=== PATIENT | female | born 1955 | race African-American/Black ===

== ENCOUNTER 2016-06-05 14:41 | Inpatient (IN) ==
[2016-06-05] MEDS ORDERED: Ipratropium/Albuterol Neb 3 ML IH ONE (14:43)
[2016-06-05] MEDS ORDERED: methylPREDNISolone 125 MG/2 ML VIAL IVP ONE (14:43)
--- NOTE | 2016-06-05 14:56 | Emergency Department Note ---
Disposition Clinical Impression: Acute exacerbation of chronic obstructive airways disease Disposition: Admitted As Inpatient Condition: Fair Referrals: NO,PCP [Primary Care Provider] - Forms: ED Satisfaction Letter Time of Disposition: 15:52 SOB HPI - General Chief Complaint: ED Shortness of Breath/Dyspnea Stated Complaint: sob Time Seen by Provider: 06/05/16 14:43 Source: patient Limitations: no limitations Nursing Notes Reviewed: Yes Vital Signs Reviewed: Yes - History of Present Illness 60-year-old COPD or rales no [facility] comes in with increasing shortness breath last 3 days. With audible wheezing on arrival. Patient is on oxygen at the [facility]. Pt Subjective Complaint: shortness of breath, cough Onset (ago): day(s) Context: recent illness Severity: moderate Consistency/Duration: constant Improves with: nothing Worsens with: nothing Known history of: COPD - Related Data Previous Rx's Medication Instructions Recorded Azithromycin [Azithromycin 6-Tab 250 mg PO PER PKG DI #6 tab 03/22/16 Pack] Allergies Allergy/AdvReac Type Severity Reaction Status Date / Time No Known Allergies Allergy Verified 03/22/16 19:28 Constitutional: Denies: fever, chills, weakness, weight change Eyes: Denies: eye pain, eye discharge, vision change ENT ED: Denies: ear pain, throat pain, dental pain, hearing loss, epistaxis, congestion, dysphagia Cardiovascular: Denies: chest pain, palpitations, dyspnea on exertion, edema, syncope Respiratory: Reports: cough, dyspnea, wheezes. Denies: hemoptysis, stridor Gastrointestinal: Denies: abdominal pain, nausea, vomiting, diarrhea, constipation, hematemesis, melena, hematochezia Genitourinary: Denies: dysuria, frequency, hematuria, discharge Musculoskeletal: Denies: back pain, neck pain, arthralgia, myalgia Integumentary: Denies: rash, abrasion, lesions Neurological: Denies: headache, weakness, numbness, paresthesias, confusion, abnormal gait, vertigo Psychiatric: Denies: anxiety, depression, suicidal thoughts, homicidal thoughts , auditory hallucinations, visual hallucinations Endocrine: Denies: fatigue Hematological/Lymphatic: Denies: easy bleeding, easy bruising Allergic/Immunologic: Denies: facial swelling, urticaria Past Medical History - Past Medical History Medical history: Reports: asthma, COPD, GERD, hypertension, thyroid disease Psychiatric history: Reports: anxiety, depression - Social History Smoking Status: Former smoker Smokeless Tobacco Status: No Alcohol use: Reports: none Drug use: Reports: none Physical Exam - General Limitations: no limitations General appearance: alert - Head Head exam: atraumatic, normocephalic, normal inspection - Eye Eye exam: Present: normal appearance, PERRL, EOMI - ENT ENT exam: normal exam, normal oropharynx, mucous membranes moist - Neck Neck exam: Present: normal inspection, full ROM, trachea midline - Chest Chest inspection: Present: normal inspection, symmetric chest wall rise - Respiratory Respiratory exam: Present: respiratory distress, wheezes - Cardiovascular Cardiovascular exam: Present: regular rate, normal rhythm, normal heart sounds - Abdominal Exam Abdominal exam: Present: soft, Non-Tender. Absent: tenderness, distention, guarding, rebound, rigidity - Extremities Exam Extremities exam: Present: normal inspection, full ROM. Absent: tenderness, pedal edema - Expanded Lower Extremity Exam Neurovascular/Tendon exam: Absent: motor deficit, sensory deficit, tendon deficit Gait: observed and normal - Back Exam Back exam: Present: normal inspection, full ROM. Absent: tenderness - Neurological Exam Neurological exam: Present: alert, oriented X3 - Psychiatric Psychiatric exam: Present: normal affect, normal mood - Skin Skin exam: Present: warm, dry, intact, normal color Course - Reevaluation(s) Reevaluation #1: 60-year-old who comes in complaining of shortness of breath. Patient has a history of COPD he is on 3 L nasal cannula at the [facility]. Squad found the patient to have a pulse ox in the mid 80s. Time: 15:52 - Consultations Consultation #1: Discussed with , admit Time: 15:52 Vital Signs Temperature 98.2 F 06/05/16 14:43 Pulse Rate 92 06/05/16 14:43 Respiratory Rate 24 06/05/16 14:43 Blood Pressure 121/88 06/05/16 14:43 O2 Sat by Pulse Oximetry 100 06/05/16 14:43 Temperature 98.2 F 06/05/16 14:43 Pulse Rate 89 06/05/16 15:45 Respiratory Rate 18 06/05/16 15:45 Blood Pressure 116/77 06/05/16 15:45 O2 Sat by Pulse Oximetry 100 06/05/16 15:45 Oxygen Delivery Oxygen Delivery Nasal Cannula Shortness of Breath/Dyspnea - Lab Data Lab results reviewed: Yes I reviewed the patient's lab results. Result diagrams: 06/05/16 15:10 06/05/16 15:10 Lab Results 06/05/16 06/05/16 06/05/16 Range/Units 15:10 15:10 15:10 WBC 8.4 (4.3-11.1) K/mcL RBC 4.74 (3.82-4.97) M/mcL Hgb 12.5 (11.5-15.4) g/dL Hct 40.7 (35.3-44.9) % MCV 85.9 (83.0-100.0) fL MCH 26.4 L (28.0-33.3) pg MCHC 30.7 L (31.6-35.5) g/dL RDW 14.6 H (11.5-14.5) % Plt Count 270 (140-400) K/mcL MPV 9.9 (9.4-12.4) fL Immature Gran % 0.2 (0-4) % Seg Neutrophils % 50.0 % Lymphocytes % 38.7 % Monocytes % 7.0 % Eosinophils % 3.5 % Basophils % 0.6 % Neutrophils # 4.2 (1.6-8.9) K/mcL Lymphocytes # 3.2 (0.6-4.6) K/mcL Monocytes # 0.6 (0.0-1.3) K/mcL Eosinophils # 0.3 (0.0-0.6) K/mcL Basophils # 0.1 (0.0-0.2) K/mcL Sodium 142 (136-145) mEq/L Potassium 4.3 (3.5-4.5) mEq/L Chloride 103 (98-109) mEq/L Carbon Dioxide 33 H (19-29) mEq/L BUN 13 (7-20) mg/dL Creatinine 0.63 (0.57-1.11) mg/dL Est GFR ( Amer) > 60 (> 60) Est GFR (Non-Af Amer) > 60 (> 60) BUN/Creatinine Ratio 21 (6-26) Glucose 96 (70-99) mg/dL Calculated Osmolality 294 (280-300) Lactic Acid 0.9 (0.5-2.2) mmol/L Calcium 9.1 (8.6-10.8) mg/dL Troponin I (0-0.03) ng/mL B-Natriuretic Peptide (0-100) pg/mL 06/05/16 06/05/16 Range/Units 15:10 15:10 WBC (4.3-11.1) K/mcL RBC (3.82-4.97) M/mcL Hgb (11.5-15.4) g/dL Hct (35.3-44.9) % MCV (83.0-100.0) fL MCH (28.0-33.3) pg MCHC (31.6-35.5) g/dL RDW (11.5-14.5) % Plt Count (140-400) K/mcL MPV (9.4-12.4) fL Immature Gran % (0-4) % Seg Neutrophils % % Lymphocytes % % Monocytes % % Eosinophils % % Basophils % % Neutrophils # (1.6-8.9) K/mcL Lymphocytes # (0.6-4.6) K/mcL Monocytes # (0.0-1.3) K/mcL Eosinophils # (0.0-0.6) K/mcL Basophils # (0.0-0.2) K/mcL Sodium (136-145) mEq/L Potassium (3.5-4.5) mEq/L Chloride (98-109) mEq/L Carbon Dioxide (19-29) mEq/L BUN (7-20) mg/dL Creatinine (0.57-1.11) mg/dL Est GFR ( Amer) (> 60) Est GFR (Non-Af Amer) (> 60) BUN/Creatinine Ratio (6-26) Glucose (70-99) mg/dL Calculated Osmolality (280-300) Lactic Acid (0.5-2.2) mmol/L Calcium (8.6-10.8) mg/dL Troponin I 0.01 (0-0.03) ng/mL B-Natriuretic Peptide 14 (0-100) pg/mL - Radiology Data Radiology results reviewed: Yes I reviewed the patient's radiology results. Chest X-Ray 06/05/16 14:43 IMPRESSION: No acute cardiopulmonary process. D/ / 06/05/2016 15:08:54 Dominick Kuhn MD / [facility] Interpreting Provider: Dominick Kuhn MD - EKG Data EKG attestation: Yes I reviewed and interpreted this EKG. EKG shows normal: Reports: sinus rhythm Rate: Reports: normal Rhythm: Reports: NSR Interpretation: Reports: no acute changes
[2016-06-05 15:19] LABS: Basophils # 0.1 K/mcL (0.0-0.2); Basophils % 0.6 %; Eosinophils # 0.3 K/mcL (0.0-0.6); Eosinophils % 3.5 %; Hematocrit 40.7 % (35.3-44.9); Hemoglobin 12.5 g/dL (11.5-15.4); Immature Granulocytes % 0.2 % (0-4); Lymphocytes # 3.2 K/mcL (0.6-4.6); Lymphocytes % 38.7 %; Mean Corpuscular HGB Conc 30.7 g/dL (31.6-35.5); Mean Corpuscular Hemoglobin 26.4 pg (28.0-33.3); Mean Corpuscular Volume 85.9 fL (83.0-100.0); Mean Platelet Volume 9.9 fL (9.4-12.4); Monocytes # 0.6 K/mcL (0.0-1.3); Neutrophils # 4.2 K/mcL (1.6-8.9); Platelet Count 270 K/mcL (140-400); Red Blood Count 4.74 M/mcL (3.82-4.97); Red Cell Distribution Width 14.6 % (11.5-14.5)
[2016-06-05 15:33] LABS: BUN/Creatinine Ratio 21 (6-26); Blood Urea Nitrogen 13 mg/dL (7-20); Calcium 9.1 mg/dL (8.6-10.8); Carbon Dioxide 33 mEq/L (19-29); Chloride 103 mEq/L (98-109); Glucose 96 mg/dL (70-99); Osmolality,Calculated 294 (280-300); Potassium 4.3 mEq/L (3.5-4.5); Sodium 142 mEq/L (136-145); eGFR For African Americans > 60 (> 60); eGFR For Non-African Americans > 60 (> 60)
[2016-06-05] MEDS ORDERED: Naloxone 0.4 MG/ML INJ IVP PRN (16:58)
[2016-06-05] MEDS ORDERED: Ondansetron 4 MG/2 ML VIAL IVP PRN (16:58)
[2016-06-05] MEDS ORDERED: Ketorolac 30 MG/ML VIAL IM PRN (17:00)
--- NOTE | 2016-06-05 17:03 | Internal Med History&Physical ---
Date of Encounter: 06/05/16 Time of Encounter: 16:55 Assessment and Plan (1) Acute exacerbation of chronic obstructive airways disease Current visit: Yes Status: Acute Patient with productive sputum, wheezing, shortness of breath. Symptoms improved with treatment in ER - Scheduled nebs - PO steroids - Azithromycin PO - O2 as needed (2) HTN (hypertension) Current visit: Yes Status: Acute BP stable, continue home medications. Qualifiers: Hypertension type: essential hypertension Qualified Code(s): I10 - Essential (primary) hypertension (3) Anxiety Current visit: Yes Status: Acute Stable - Continue home meds (4) GERD (gastroesophageal reflux disease) Current visit: Yes Status: Acute Continue home meds Qualifiers: Esophagitis presence: without esophagitis Qualified Code(s): K21.9 - Gastro -esophageal reflux disease without esophagitis (5) Hypothyroidism Current visit: Yes Status: Acute Continue home meds Qualifiers: Hypothyroidism type: acquired Qualified Code(s): E03.9 - Hypothyroidism, unspecified (6) DVT (deep venous thrombosis) Current visit: Yes Status: Acute History of DVT, no longer on anticoagulation - DVT prophylaxis with SQ lovenox Qualifiers: DVT location: lower extremity Affected thrombotic vein of extremity: unspecified vein of extremity Laterality: unspecified laterality Chronicity : unspecified Qualified Code(s): I82.409 - Acute embolism and thrombosis of unspecified deep veins of unspecified lower extremity Internal Medicine - H&P: HPI Chief complaint: Shortness of breath, cough Admitted From: Emergency Dept Plans for Post Hospital Care: Home History of present illness: Ms. Chris is a 60 year old female with history of COPD/asthma on 3L NC, GERD, anxiety and depression who presented to the ER this afternoon from her [facility] because of worsening shortness of breath and cough for the past 2-3 days. She was diagnosed with pneumonia two months ago and her breathing returned to normal with treatment. Three days ago she began coughing up yellowish sputum and developed worsening shortness of breath. She endorses pleuritic chest pain associated with coughing or deep breath, worsened with palpation. She was found to have O2 sat in mid 80's by EMS when they arrived at her ECF and her oxygen was increased. In the ER she was given IV steroids and nebs. She states that she is feeling better after the treatment she received in the ER, but she is still wheezy and not back to baseline. She endorses subjective fevers over the past few days. Past Med Surg Social Fam HX - Past Medical History Medical history: asthma, COPD (On home O2), DVT, GERD, hypertension, migraine, thyroid disease Psychiatric history: anxiety, depression - Social History Smoking Status: Former smoker Smokeless Tobacco Status: No Alcohol use: none Drug use: none - Family History Mother History Unknown: Yes Internal Medicine - H&P: Meds Albuterol Sulfate [Proair Hfa] 2 puff IH Q4H PRN 06/05/16 [History] Alprazolam [Xanax 0.5 MG Tablet] 0.5 mg PO BID 06/05/16 [History] Aspirin [Lo-Dose Aspirin EC] 81 mg PO DAILY 06/05/16 [History] Budesonide/Formoterol 160/4.5 [Symbicort 160/4.5] 2 puff IH BID 06/05/16 [ History] Carvedilol [Coreg] 3.125 mg PO DAILY PRN 06/05/16 [History] Furosemide [Lasix] 20 mg PO DAILY 06/05/16 [History] Gabapentin [Neurontin] 100 mg PO BID 06/05/16 [History] GuaiFENesin/Dextromethorphan [Tussin Dm Syrup] 10 ml PO QID PRN 06/05/16 [ History] Guaifenesin [Mucinex] 600 mg PO BID 06/05/16 [History] Ipratropium/Albuterol Neb [Duoneb] 3 ml IH Q4HR 06/05/16 [History] Ketorolac [Toradol] 60 mg IM Q6HR PRN 06/05/16 [History] Levothyroxine [Synthroid] 25 mcg PO DAILY 06/05/16 [History] Magnesium Hydroxide [Milk of Magnesia] 30 ml PO DAILY 06/05/16 [History] Menthol [Biofreeze] 1 appl TP BID 06/05/16 [History] Nystatin Cream [Mycostatin Cream] 1 appl TP TID 06/05/16 [History] Omeprazole [PriLOSEC] 20 mg PO DAILY 06/05/16 [History] Oxycodone HCl/Acetaminophen [Percocet 5-325 mg Tablet] 2 tab PO Q6H PRN [History] Sennosides/Docusate Sodium [Senna-S Tablet] 1 tab PO BID 06/05/16 [History] Sertraline [Zoloft] 50 mg PO DAILY 06/05/16 [History] Sucralfate [Carafate] 1 gm PO QIDAC 06/05/16 [History] Trazodone HCl 100 mg PO HS 06/05/16 [History] Allergies No Known Allergies Allergy (Verified 03/22/16 19:28) All Systems PM: A 10-system review of systems was performed and is negative for pertinent findings except as documented above in the HPI. - Constitutional Vitals: Temp Pulse Resp BP Pulse Ox 98.2 F 89 18 112/80 100 06/05/16 14:43 06/05/16 15:45 06/05/16 16:37 06/05/16 16:37 06/05/16 15:45 General appearance: Present: A&O X 3 Exam: Patient in no acute distress, resting comfortably in bed. - Head Head exam: Present: atraumatic - Eye Eye exam: Present: EOMI, sclera anicteric - ENT ENT exam: Present: mucous membranes moist - Neck Neck exam general surgery: Present: supple - Respiratory Additional comments: Decreased breath sounds in bilateral bases, expiratory wheezes in bilateral upper lung larson. - Cardiovascular Cardiovascular exam: Present: RRR. Absent: diastolic murmur, gallop, rubs, systolic murmur - GI/Abdominal GI/Abdominal exam: Present: normal bowel sounds, soft. Absent: distended, tenderness - Extremities Exam Extremities exam: Present: pedal edema (1-2+ edema bilateral lower extremities. ) - Neurological Exam Neurological exam: Present: no focal deficits - Skin Skin exam: Absent: rash Internal Med - H&P Results - Labs CBC & Chem 7: 06/05/16 15:10 06/05/16 15:10
[2016-06-05 17:37] LABS: Prothrombin Time 11.1 Seconds (9.4-12.1)
[2016-06-05 19:49] LABS: Adenovirus Not Detected (Not Detect); Bordetella Pertussis Not Detected (Not Detect); Chlamydophila pneumoniae Not Detected (Not Detect); Coronavirus 229E Not Detected (Not Detect); Coronavirus HKU1 Not Detected (Not Detect); Coronavirus NL63 Not Detected (Not Detect); Coronavirus OC43 Not Detected (Not Detect); Human Metapneumovirus Not Detected (Not Detect); Human Rhinovirus/Enterovirus Not Detected (Not Detect); Influenza A Subtype 2009 H1 Not Detected (Not Detect); Influenza A Untypeable Not Detected (Not Detect); Influenza B Not Detected (Not Detect); Mycoplasma pneumoniae Not Detected (Not Detect); Parainfluenza Virus 1 Not Detected (Not Detect); Parainfluenza Virus 2 Not Detected (Not Detect); Parainfluenza Virus 3 Not Detected (Not Detect); Parainfluenza Virus 4 Not Detected (Not Detect); Respiratory Syncytial Virus Not Detected (Not Detect)
[2016-06-05] MEDS: Budesonide Neb 0.5 MG/2 ML IH SCH (20:06)
[2016-06-05] MEDS: Ipratropium/Albuterol Neb 3 ML IH SCH (20:06)
[2016-06-05] MEDS ORDERED: Budesonide/Formoterol 160/4.5 MDI IH SCH (21:00)
[2016-06-05] MEDS: Sucralfate 1 GM TABLET PO SCH (21:18)
[2016-06-05] MEDS: Gabapentin 100 MG CAPSULE PO SCH (21:18)
[2016-06-05] MEDS: ALPRAZolam 0.5 MG TABLET PO SCH (21:18)
[2016-06-05] MEDS: Sennosides/Docusate Sodium TABLET PO SCH (21:18)
[2016-06-05] MEDS: *HR* OxyCODONE/APAP 5/325 TABLET PO PRN (21:18)
[2016-06-05] MEDS: Nystatin Cream 15 GM TUBE TP SCH ×2 (21:19)
[2016-06-06] MEDS: Ipratropium/Albuterol Neb 3 ML IH SCH ×7 (00:06→23:48)
[2016-06-06 00:38] LABS: Basophils % 0.5 %; Eosinophils # 0.2 K/mcL (0.0-0.6); Eosinophils % 3.3 %; Hematocrit 38.4 % (35.3-44.9); Hemoglobin 11.4 g/dL (11.5-15.4); Immature Granulocytes % 0.1 % (0-4); Lymphocytes # 2.7 K/mcL (0.6-4.6); Lymphocytes % 36.5 %; Mean Corpuscular HGB Conc 29.7 g/dL (31.6-35.5); Mean Corpuscular Hemoglobin 25.5 pg (28.0-33.3); Mean Corpuscular Volume 85.9 fL (83.0-100.0); Mean Platelet Volume 9.6 fL (9.4-12.4); Monocytes # 0.5 K/mcL (0.0-1.3); Neutrophils # 3.8 K/mcL (1.6-8.9); Platelet Count 253 K/mcL (140-400); Red Blood Count 4.47 M/mcL (3.82-4.97); Red Cell Distribution Width 14.6 % (11.5-14.5); Segmented Neutrophils % 52.6 %
[2016-06-06 00:50] LABS: BUN/Creatinine Ratio 23 (6-26); Blood Urea Nitrogen 15 mg/dL (7-20); Calcium 9.2 mg/dL (8.6-10.8); Carbon Dioxide 32 mEq/L (19-29); Chloride 102 mEq/L (98-109); Glucose 95 mg/dL (70-99); Osmolality,Calculated 289 (280-300); Sodium 139 mEq/L (136-145); eGFR For African Americans > 60 (> 60); eGFR For Non-African Americans > 60 (> 60)
[2016-06-06] MEDS: *HR* Enoxaparin 40 MG/0.4 ML SYRINGE SQ SCH (06:35)
[2016-06-06] MEDS: Budesonide Neb 0.5 MG/2 ML IH SCH ×2 (07:58→20:07)
[2016-06-06] MEDS ORDERED: MAGNESIUM HYDROXIDE PO SCH (09:00)
[2016-06-06] MEDS ORDERED: predniSONE 20 MG TABLET PO SCH (09:00)
[2016-06-06] MEDS: Sennosides/Docusate Sodium TABLET PO SCH ×2 (09:56→21:55)
[2016-06-06] MEDS: Levothyroxine 25 MCG TABLET PO SCH (09:56)
[2016-06-06] MEDS: Azithromycin 250 MG TABLET PO SCH (09:56)
[2016-06-06] MEDS: Furosemide 20 MG TABLET PO SCH (09:56)
[2016-06-06] MEDS: Gabapentin 100 MG CAPSULE PO SCH ×2 (09:57→21:55)
[2016-06-06] MEDS: ALPRAZolam 0.5 MG TABLET PO SCH ×2 (09:57→20:15)
[2016-06-06] MEDS: Aspirin Enteric Coated 81 MG Tablet PO SCH (09:57)
[2016-06-06] MEDS: Nystatin Cream 15 GM TUBE TP SCH ×3 (09:58→22:36)
[2016-06-06] MEDS: Sucralfate 1 GM TABLET PO SCH ×4 (09:59→21:56)
[2016-06-06] MEDS: *HR* OxyCODONE/APAP 5/325 TABLET PO PRN ×2 (10:04→21:55)
[2016-06-06] MEDS ORDERED: *HR* Heparin 5,000 UNIT/ML VIAL SQ SCH (16:00)
--- NOTE | 2016-06-06 16:26 | Electrocardiograph Report ---
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
--- NOTE | 2016-06-06 17:57 | Internal Med Progress Note ---
Date of Encounter: 06/06/16 Time of Encounter: 10:00 - Assessment and plan (1) Acute exacerbation of chronic obstructive airways disease Current Visit: Yes Status: Acute Assessment and plan: Patient reports decreased appetite, 3 days worth of cough with yellow sputum, and general fatigue. She is a resident at [facility] and states that none of the nurses listened to her. Audible wheezing is heard upon entering the room, patient has a moist cough. She has a history of respiratory failure and cardiac arrest in the past and has had a trach before. Her chest x- ray is negative for any acute cardiopulmonary process. Her viral panel was negative. She has no leukocytosis or fever. She is wearing 3 L of oxygen maintaining sats above 92%. She has no leukocytosis. Oxygen and titrate to maintain sats above 92% Scheduled and when necessary nebs Zithromax by mouth Continuous pulse ox Prednisone by mouth Monitor labs Vital signs Sputum culture ordered, not collected yet. (2) HTN (hypertension) Current Visit: Yes Status: Chronic Assessment and plan: Chronic and stable. We will continue home medications Monitor vital signs Qualifiers: Hypertension type: essential hypertension Qualified Code(s): I10 - Essential (primary) hypertension (3) Anxiety Current Visit: Yes Status: Chronic Assessment and plan: Patient was tearful during exam. She appeared anxious about continuous pulse ox that was in the room. She is in the intermediate because she has nowhere else to live. She said that she used to live with her daughter. I encouraged patient to watch TV instead of watching the monitor and she appeared to relax some. Xanax when necessary anxiety Continue to monitor patient (4) GERD (gastroesophageal reflux disease) Current Visit: Yes Status: Chronic Assessment and plan: Chronic and stable. Continue home medications Qualifiers: Esophagitis presence: without esophagitis Qualified Code(s): K21.9 - Gastro -esophageal reflux disease without esophagitis (5) Hypothyroidism Current Visit: Yes Status: Chronic Assessment and plan: Chronic and stable continue home medications. Qualifiers: Hypothyroidism type: acquired Qualified Code(s): E03.9 - Hypothyroidism, unspecified (6) DVT (deep venous thrombosis) Current Visit: Yes Status: Chronic Assessment and plan: Patient does have a history of DVT. Subcutaneous Lovenox. Qualifiers: DVT location: lower extremity Affected thrombotic vein of extremity: unspecified vein of extremity Laterality: unspecified laterality Chronicity : unspecified Qualified Code(s): I82.409 - Acute embolism and thrombosis of unspecified deep veins of unspecified lower extremity - Time Spent With Patient less than 15 minutes - Subjective Interval history: Patient tearful, patient appears to be anxious over continuous pulse ox monitor in her room. She denies chest pain, she does appear to be mildly short of breath while sitting. Patient to watch TV and attempt to relax. Patient reports productive cough with yellow sputum, I have ordered a sputum culture. Patient reports left anterior rib pain with cough. - Constitutional Vitals: Temp Pulse Resp BP Pulse Ox 97.9 F 89 16 114/77 97 06/06/16 14:25 06/06/16 14:25 06/06/16 14:25 06/06/16 14:25 06/06/16 14:25 General appearance: Present: cooperative, A&O X 3, pleasant, answers questions appropriately Exam: Mild distress, tearful - Head Head exam: Present: normal inspection - Eye Eye exam: Present: normal appearance, conjuntiva pink - ENT ENT exam: Present: mucous membranes moist, normal exam, normal external ear exam , normal oropharynx - Neck Neck exam general surgery: Present: normal inspection. Absent: lymphadenopathy , tenderness - Respiratory Respiratory exam: Present: chest wall tenderness, respiratory distress, rhonchi , wheezes Additional comments: Patient is in mild respiratory distress, she speaks easily in long phrases. Patient has expiratory wheezing in all lung larson, coughs with deep inspiration. Rhonchi heard throughout as well. Patient reports left anterior rib pain with cough. - Cardiovascular Cardiovascular exam: Present: RRR, +S1, +S2. Absent: diastolic murmur, systolic murmur - Expanded Cardiovascular Exam Peripheral pulses: 2+: Dorsalis Pedis (L) PM, Dorsalis Pedis (R) PM - Extremities Exam Extremities exam: Present: normal capillary refill, normal inspection, warm, radial pulses palpable and symetrical. Absent: pedal edema, tenderness - Neurological Exam Neurological exam: Present: alert, oriented X3. Absent: facial droop, speech deficit Internal Medicine: Result - Labs CBC & Chem 7: 06/06/16 00:24 06/06/16 00:24 - ABG Interpretation ABG results: PT/INR, D-dimer PT 11.1 Seconds (9.4-12.1) 06/05/16 17:13 Consult Discharge Plan - Plan Referrals: NO,PCP [Primary Care Provider] -
[2016-06-06] MEDS ORDERED: Albuterol 2.5 MG/3 ML NEBULIZER IH PRN (22:54)
[2016-06-07] MEDS: Ipratropium/Albuterol Neb 3 ML IH SCH ×6 (04:29→23:16)
[2016-06-07] MEDS: methylPREDNISolone 125 MG/2 ML VIAL IVP SCH ×4 (05:51→18:42)
[2016-06-07] MEDS: *HR* Enoxaparin 40 MG/0.4 ML SYRINGE SQ SCH (05:51)
[2016-06-07 06:43] LABS: Basophils % 0.1 %; Hemoglobin 12.2 g/dL (11.5-15.4); Immature Granulocytes % 0.7 % (0-4); Lymphocytes # 1.7 K/mcL (0.6-4.6); Lymphocytes % 18.6 %; Mean Corpuscular HGB Conc 30.5 g/dL (31.6-35.5); Mean Corpuscular Hemoglobin 26.2 pg (28.0-33.3); Mean Platelet Volume 9.9 fL (9.4-12.4); Monocytes # 0.1 K/mcL (0.0-1.3); Monocytes % 0.8 %; Neutrophils # 7.4 K/mcL (1.6-8.9); Platelet Count 253 K/mcL (140-400); Red Blood Count 4.65 M/mcL (3.82-4.97); Red Cell Distribution Width 14.4 % (11.5-14.5); Segmented Neutrophils % 79.8 %
[2016-06-07 06:58] LABS: BUN/Creatinine Ratio 26 (6-26); Blood Urea Nitrogen 16 mg/dL (7-20); Calcium 9.4 mg/dL (8.6-10.8); Carbon Dioxide 32 mEq/L (19-29); Chloride 103 mEq/L (98-109); Glucose 195 mg/dL (70-99); Osmolality,Calculated 299 (280-300); Potassium 4.3 mEq/L (3.5-4.5); Sodium 141 mEq/L (136-145); eGFR For African Americans > 60 (> 60); eGFR For Non-African Americans > 60 (> 60)
[2016-06-07] MEDS: Budesonide Neb 0.5 MG/2 ML IH SCH ×2 (07:53→19:57)
[2016-06-07] MEDS: *HR* OxyCODONE/APAP 5/325 TABLET PO PRN ×2 (08:37→16:18)
[2016-06-07] MEDS: Sucralfate 1 GM TABLET PO SCH ×4 (08:38→21:20)
[2016-06-07] MEDS: Aspirin Enteric Coated 81 MG Tablet PO SCH (08:39)
[2016-06-07] MEDS: Furosemide 20 MG TABLET PO SCH (08:39)
[2016-06-07] MEDS: Levothyroxine 25 MCG TABLET PO SCH (08:40)
[2016-06-07] MEDS: Nystatin Cream 15 GM TUBE TP SCH ×3 (08:40→21:22)
[2016-06-07] MEDS: Sennosides/Docusate Sodium TABLET PO SCH ×2 (08:40→21:20)
[2016-06-07] MEDS: ALPRAZolam 0.5 MG TABLET PO SCH ×2 (08:40→21:20)
[2016-06-07] MEDS: Gabapentin 100 MG CAPSULE PO SCH ×2 (08:40→21:20)
[2016-06-07] MEDS: Azithromycin 250 MG TABLET PO SCH (08:41)
--- NOTE | 2016-06-07 18:05 | Internal Med Progress Note ---
Date of Encounter: 06/07/16 Time of Encounter: 18:05 - Assessment and plan (1) Acute exacerbation of chronic obstructive airways disease Current Visit: Yes Status: Acute Assessment and plan: She does have something going out of the sputum. Going to start her on some Rocephin to add to the Zithromax. Also going over her steroids over to by mouth again. Into the possibility of being discharge home pending the results of the sputum (2) HTN (hypertension) Current Visit: Yes Status: Chronic Qualifiers: Hypertension type: essential hypertension Qualified Code(s): I10 - Essential (primary) hypertension (3) GERD (gastroesophageal reflux disease) Current Visit: Yes Status: Chronic Qualifiers: Esophagitis presence: without esophagitis Qualified Code(s): K21.9 - Gastro -esophageal reflux disease without esophagitis - Subjective Interval history: She still complaining of some pretty significant cough and wheezing. She still like she has just feels "wore out " Sputum is growing a fair amount of gram-positive cocci. She is only on Zithromax at the current time frame. - Constitutional Vitals: Temp Pulse Resp BP Pulse Ox 98.0 F 98 22 131/84 96 06/07/16 15:17 06/07/16 15:17 06/07/16 15:17 06/07/16 15:17 06/07/16 15:17 General appearance: Present: cooperative, mild distress, A&O X 3, pleasant, answers questions appropriately - Respiratory Respiratory exam: Present: respiratory distress (Mild respiratory distress), wheezes (Diffuse wheezes throughout all lung larson.). Absent: rales, rhonchi Internal Medicine: Result - Labs CBC & Chem 7: 06/07/16 06:22 06/07/16 06:22 Labs: Short CBC 06/07/16 Range/Units 06:22 WBC 9.2 (4.3-11.1) K/mcL Hgb 12.2 (11.5-15.4) g/dL Hct 40.0 (35.3-44.9) % Plt Count 253 (140-400) K/mcL Neutrophils # 7.4 (1.6-8.9) K/mcL BMP 06/07/16 06:22 Sodium 141 Potassium 4.3 Chloride 103 Carbon Dioxide 32 H BUN 16 Creatinine 0.62 Glucose 195 H Calcium 9.4 - ABG Interpretation ABG results: PT/INR, D-dimer PT 11.1 Seconds (9.4-12.1) 06/05/16 17:13 - VTE Documentation of Mechanical Device: Graduated compression elastic hosiery Consult Discharge Plan - Plan Referrals: NO,PCP [Primary Care Provider] -
[2016-06-08] MEDS: Ipratropium/Albuterol Neb 3 ML IH SCH ×6 (04:13→23:45)
[2016-06-08] MEDS: *HR* Enoxaparin 40 MG/0.4 ML SYRINGE SQ SCH (05:43)
[2016-06-08 06:27] LABS: Basophils % 0.1 %; Hemoglobin 12.2 g/dL (11.5-15.4); Immature Granulocytes % 1.4 % (0-4); Lymphocytes # 2.2 K/mcL (0.6-4.6); Lymphocytes % 13.5 %; Mean Corpuscular HGB Conc 30.5 g/dL (31.6-35.5); Mean Corpuscular Hemoglobin 25.9 pg (28.0-33.3); Mean Corpuscular Volume 84.9 fL (83.0-100.0); Mean Platelet Volume 10.2 fL (9.4-12.4); Monocytes # 0.7 K/mcL (0.0-1.3); Neutrophils # 13.2 K/mcL (1.6-8.9); Platelet Count 268 K/mcL (140-400); Red Blood Count 4.71 M/mcL (3.82-4.97); Red Cell Distribution Width 14.6 % (11.5-14.5)
[2016-06-08 06:49] LABS: BUN/Creatinine Ratio 31 (6-26); Blood Urea Nitrogen 18 mg/dL (7-20); Calcium 9.3 mg/dL (8.6-10.8); Carbon Dioxide 33 mEq/L (19-29); Chloride 103 mEq/L (98-109); Glucose 122 mg/dL (70-99); Osmolality,Calculated 299 (280-300); Sodium 143 mEq/L (136-145); eGFR For African Americans > 60 (> 60); eGFR For Non-African Americans > 60 (> 60)
[2016-06-08] MEDS: Sucralfate 1 GM TABLET PO SCH ×4 (08:04→21:08)
[2016-06-08] MEDS: predniSONE 20 MG TABLET PO SCH ×2 (08:04→16:00)
[2016-06-08] MEDS: Budesonide Neb 0.5 MG/2 ML IH SCH ×2 (08:13→21:22)
[2016-06-08] MEDS: ALPRAZolam 0.5 MG TABLET PO SCH ×2 (08:44→20:01)
[2016-06-08] MEDS: Gabapentin 100 MG CAPSULE PO SCH ×2 (08:47→20:01)
[2016-06-08] MEDS: Levothyroxine 25 MCG TABLET PO SCH (08:47)
[2016-06-08] MEDS: Furosemide 20 MG TABLET PO SCH (08:47)
[2016-06-08] MEDS: Azithromycin 250 MG TABLET PO SCH (08:48)
[2016-06-08] MEDS: Sennosides/Docusate Sodium TABLET PO SCH ×2 (08:48→20:00)
[2016-06-08] MEDS: Aspirin Enteric Coated 81 MG Tablet PO SCH (08:48)
[2016-06-08] MEDS: Nystatin Cream 15 GM TUBE TP SCH ×3 (10:07→20:01)
[2016-06-08] MEDS: *HR* OxyCODONE/APAP 5/325 TABLET PO PRN (11:38)
[2016-06-08] MEDS ORDERED: predniSONE 20 MG TABLET PO STA (16:47)
--- NOTE | 2016-06-08 16:54 | Internal Med Progress Note ---
Date of Encounter: 06/08/16 Time of Encounter: 16:52 - Assessment and plan (1) Acute exacerbation of chronic obstructive airways disease Current Visit: Yes Status: Acute (2) HTN (hypertension) Current Visit: Yes Status: Chronic Qualifiers: Hypertension type: essential hypertension Qualified Code(s): I10 - Essential (primary) hypertension (3) GERD (gastroesophageal reflux disease) Current Visit: Yes Status: Chronic Qualifiers: Esophagitis presence: without esophagitis Qualified Code(s): K21.9 - Gastro -esophageal reflux disease without esophagitis (4) Morbid obesity with BMI of 40.0-44.9, adult Current Visit: Yes Status: Chronic (5) COPD (chronic obstructive pulmonary disease) with acute bronchitis Current Visit: Yes Status: Acute - Time Spent With Patient 25 - 35 minutes - Subjective Interval history: She still complaining of significant cough and wheezing. She still like she has just feels "wore out ". Also has a new complaint of jaw line pain bilaterally and is refusing to eat because of this jawline discomfort.. She also states she is wheezing again. - Constitutional Vitals: Temp Pulse Resp BP Pulse Ox 97.9 F 82 16 118/76 98 06/08/16 14:51 06/08/16 14:51 06/08/16 16:28 06/08/16 14:51 06/08/16 16:28 General appearance: Present: cooperative, mild distress, A&O X 3, pleasant, answers questions appropriately - ENT ENT exam: Present: normal external ear exam, normal oropharynx Additional comments: Tenderness over the parotid gland on her right hand over the submandibular gland on her right with some slight swelling as well. - Expanded ENT Exam Ear exam: Absent: external canal tenderness Mouth exam: Present: normal external inspection, tongue normal. Absent: drooling, dry mucosa, tongue hypertrophy Throat exam: Present: normal inspection - Respiratory Respiratory exam: Present: decreased breath sounds, wheezes. Absent: rales, rhonchi, tachypnea Additional comments: She has a O2 sats that are dropping and she had to go up to 4 L nasal cannula oxygen here this afternoon again. Internal Medicine: Result - Labs CBC & Chem 7: 06/08/16 05:40 06/08/16 05:40 Labs: Short CBC 06/08/16 Range/Units 05:40 WBC 16.3 H D (4.3-11.1) K/mcL Hgb 12.2 (11.5-15.4) g/dL Hct 40.0 (35.3-44.9) % Plt Count 268 (140-400) K/mcL Neutrophils # 13.2 H (1.6-8.9) K/mcL BMP 06/08/16 05:40 Sodium 143 Potassium 4.0 Chloride 103 Carbon Dioxide 33 H BUN 18 Creatinine 0.59 Glucose 122 H Calcium 9.3 - ABG Interpretation ABG results: PT/INR, D-dimer PT 11.1 Seconds (9.4-12.1) 06/05/16 17:13 - VTE Documentation of Mechanical Device: Graduated compression elastic hosiery Consult Discharge Plan - Plan Referrals: NO,PCP [Primary Care Provider] -
[2016-06-08] MEDS: Cefdinir 300 MG CAPSULE PO SCH (20:00)
[2016-06-09] MEDS: Ipratropium/Albuterol Neb 3 ML IH SCH ×4 (04:21→16:48)
[2016-06-09] MEDS: *HR* Enoxaparin 40 MG/0.4 ML SYRINGE SQ SCH (06:23)
[2016-06-09] MEDS: Budesonide Neb 0.5 MG/2 ML IH SCH (07:46)
[2016-06-09] MEDS ORDERED: predniSONE 20 MG TABLET PO SCH (09:00)
[2016-06-09] MEDS: Nystatin Cream 15 GM TUBE TP SCH ×2 (09:11→14:33)
[2016-06-09] MEDS: Sucralfate 1 GM TABLET PO SCH ×3 (09:13→17:20)
[2016-06-09] MEDS: ALPRAZolam 0.5 MG TABLET PO SCH (09:13)
[2016-06-09] MEDS: Cefdinir 300 MG CAPSULE PO SCH (09:14)
[2016-06-09] MEDS: Sennosides/Docusate Sodium TABLET PO SCH (09:14)
[2016-06-09] MEDS: Azithromycin 250 MG TABLET PO SCH (09:15)
[2016-06-09] MEDS: Aspirin Enteric Coated 81 MG Tablet PO SCH (09:15)
[2016-06-09] MEDS: Levothyroxine 25 MCG TABLET PO SCH (09:15)
[2016-06-09] MEDS: Furosemide 20 MG TABLET PO SCH (09:16)
[2016-06-09] MEDS: Gabapentin 100 MG CAPSULE PO SCH (09:16)
[2016-06-09] MEDS: *HR* OxyCODONE/APAP 5/325 TABLET PO PRN (09:17)
[2016-06-09 15:15] VITALS: BP 116/78
--- NOTE | 2016-06-09 15:44 | Discharge Summary ---
Date of Encounter: 06/09/16 Time of Encounter: 15:38 - Discharge Diagnosis (1) Acute exacerbation of chronic obstructive airways disease Priority: Primary Status: Acute (2) HTN (hypertension) Priority: Primary Status: Chronic Qualifiers: Hypertension type: essential hypertension Qualified Code(s): I10 - Essential (primary) hypertension (3) GERD (gastroesophageal reflux disease) Priority: Secondary Status: Chronic Qualifiers: Esophagitis presence: without esophagitis Qualified Code(s): K21.9 - Gastro -esophageal reflux disease without esophagitis (4) Morbid obesity with BMI of 40.0-44.9, adult Priority: Secondary Status: Chronic (5) COPD (chronic obstructive pulmonary disease) with acute bronchitis Priority: Primary Status: Acute - Discharge Medications Prescriptions: Alprazolam [Xanax 0.5 MG Tablet] 0.5 mg PO BID #20 tablet Oxycodone HCl/Acetaminophen [Percocet 5-325 mg Tablet] 2 tab PO Q6H PRN #20 tablet PRN Reason: Pain Home Medications: Albuterol Sulfate [Proair Hfa] 2 puff IH Q4H PRN 06/05/16 [History] Alprazolam [Xanax 0.5 MG Tablet] 0.5 mg PO BID 06/05/16 [History] Aspirin [Lo-Dose Aspirin EC] 81 mg PO DAILY 06/05/16 [History] Budesonide/Formoterol 160/4.5 [Symbicort 160/4.5] 2 puff IH BID 06/05/16 [ History] Carvedilol [Coreg] 3.125 mg PO DAILY PRN 06/05/16 [History] Furosemide [Lasix] 20 mg PO DAILY 06/05/16 [History] Gabapentin [Neurontin] 100 mg PO BID 06/05/16 [History] Guaifenesin [Mucinex] 600 mg PO BID 06/05/16 [History] Ipratropium/Albuterol Neb [Duoneb] 3 ml IH Q4HR 06/05/16 [History] Levothyroxine [Synthroid] 25 mcg PO DAILY 06/05/16 [History] Magnesium Hydroxide [Milk of Magnesia] 30 ml PO DAILY 06/05/16 [History] Menthol [Biofreeze] 1 appl TP BID 06/05/16 [History] Nystatin Cream [Mycostatin Cream] 1 appl TP TID 06/05/16 [History] Omeprazole [PriLOSEC] 20 mg PO DAILY 06/05/16 [History] Sennosides/Docusate Sodium [Senna-S Tablet] 1 tab PO BID 06/05/16 [History] Sertraline [Zoloft] 50 mg PO DAILY 06/05/16 [History] Sucralfate [Carafate] 1 gm PO QIDAC 06/05/16 [History] Trazodone HCl 100 mg PO HS 06/05/16 [History] Alprazolam [Xanax 0.5 MG Tablet] 0.5 mg PO BID #20 tablet 06/09/16 [Rx] Azithromycin [Zithromax] 250 mg PO DAILY 3 Days 06/09/16 [Rx] Cefdinir [Omnicef] 300 mg PO BID 7 Days 06/09/16 [Rx] Oxycodone HCl/Acetaminophen [Percocet 5-325 mg Tablet] 2 tab PO Q6H PRN #20 tablet 06/09/16 [Rx] PredniSONE 60 mg PO DAILY tablet 06/09/16 [Rx] Allergies/Adverse Reactions: Allergies No Known Allergies Allergy (Verified 03/22/16 19:28) Date of admission: 06/06/16 12:54 Primary care physician: PCP NO Consults: 06/08/16 16:51 Consult to Physical Therapy [CONS] Routine Comment: Evaluate, develop and implement POC OT [Consult to Occupational Therapy] [CONS] Routine Comment: Evaluate, develop and implement POC - Patient Status Disposition: Transfer SNF Condition: Fair Functional capacity at discharge: wheelchair bound Overall status at discharge: patient is not back to baseline - Discharge Instructions Follow Up With: NO,PCP [Primary Care Provider] - - Diet and Activity Activity: as per physical therapy, wear oxygen at all times (2 L per nasal cannula) Diet: advance to your usual diet Hospital course: Ms. Chris is a 60 year old female who presented to the emergency room with complaints of increasing cough and shortness of breath wheezing and just not feeling well. She has a long history of having respiratory troubles and a 1.5 minutes and ended up with a tracheostomy after being coded in the [facility]. He presents with the shortness of breath. She was started on IV fluids, IV antibiotics, IV steroids and respiratory treatments. I am to come back around. Her baseline, prior to admission, was 3 L nasal cannula oxygen. She continued on oxygen up to 4-5 L for several days. We initially switched her to oral prednisone that is required an increase to the full 60 mg maximal dose. She ended up starting to recover then and started running as high as 98-99% on 4 L. We finally migrated her down to 2 L nasal cannula and she still maintaining 97 and 100% O2 sats so she seems to be doing fairly well. Lungs cleared very nicely as well. [facility]. She might do well with some pulmonary rehabilitation and I will order that as a discharge order from the hospital here. - Time Spent with Patient Total time spent providing and/or coordinating discharge services: - Constitutional Vitals: Temp Pulse Resp BP Pulse Ox 98.4 F 85 16 116/78 95 06/09/16 15:13 06/09/16 15:13 06/09/16 15:13 06/09/16 15:13 06/09/16 15:13 General appearance: Present: cooperative, A&O X 3, pleasant, answers questions appropriately - Respiratory Respiratory exam: Present: CTAB. Absent: prolonged expiratory phase, rales, rhonchi, wheezes - Cardiovascular Cardiovascular exam: Present: RRR - GI/Abdominal GI/Abdominal exam: Present: normal bowel sounds, soft. Absent: tenderness - VTE Documentation of Mechanical Device: Graduated compression elastic hosiery
--- NOTE | 2016-06-09 16:13 | Physician Discharge Referral ---
ExtendedCare Referral Info Transfer To: [facility] Provider in Charge: Laith Provider in Charge after Transfer: Other (director product management at site or primary care doctor at site) Institutional Level of Care: Skilled (PT/OT. Recommend pulmonary rehabilitation on transfer to [facility]) - Diagnosis (1) Acute exacerbation of chronic obstructive airways disease Status: Acute (2) HTN (hypertension) Status: Chronic (3) GERD (gastroesophageal reflux disease) Status: Chronic (4) Morbid obesity with BMI of 40.0-44.9, adult Status: Chronic (5) COPD (chronic obstructive pulmonary disease) with acute bronchitis Status: Acute - Transfer Medications Prescriptions: Alprazolam [Xanax 0.5 MG Tablet] 0.5 mg PO BID #20 tablet Oxycodone HCl/Acetaminophen [Percocet 5-325 mg Tablet] 2 tab PO Q6H PRN #20 tablet PRN Reason: Pain Home Medications: Albuterol Sulfate [Proair Hfa] 2 puff IH Q4H PRN 06/05/16 [History] Alprazolam [Xanax 0.5 MG Tablet] 0.5 mg PO BID 06/05/16 [History] Aspirin [Lo-Dose Aspirin EC] 81 mg PO DAILY 06/05/16 [History] Budesonide/Formoterol 160/4.5 [Symbicort 160/4.5] 2 puff IH BID 06/05/16 [ History] Carvedilol [Coreg] 3.125 mg PO DAILY PRN 06/05/16 [History] Furosemide [Lasix] 20 mg PO DAILY 06/05/16 [History] Gabapentin [Neurontin] 100 mg PO BID 06/05/16 [History] Guaifenesin [Mucinex] 600 mg PO BID 06/05/16 [History] Ipratropium/Albuterol Neb [Duoneb] 3 ml IH Q4HR 06/05/16 [History] Levothyroxine [Synthroid] 25 mcg PO DAILY 06/05/16 [History] Magnesium Hydroxide [Milk of Magnesia] 30 ml PO DAILY 06/05/16 [History] Menthol [Biofreeze] 1 appl TP BID 06/05/16 [History] Nystatin Cream [Mycostatin Cream] 1 appl TP TID 06/05/16 [History] Omeprazole [PriLOSEC] 20 mg PO DAILY 06/05/16 [History] Sennosides/Docusate Sodium [Senna-S Tablet] 1 tab PO BID 06/05/16 [History] Sertraline [Zoloft] 50 mg PO DAILY 06/05/16 [History] Sucralfate [Carafate] 1 gm PO QIDAC 06/05/16 [History] Trazodone HCl 100 mg PO HS 06/05/16 [History] Alprazolam [Xanax 0.5 MG Tablet] 0.5 mg PO BID #20 tablet 06/09/16 [Rx] Azithromycin [Zithromax] 250 mg PO DAILY 3 Days 06/09/16 [Rx] Cefdinir [Omnicef] 300 mg PO BID 7 Days 06/09/16 [Rx] Oxycodone HCl/Acetaminophen [Percocet 5-325 mg Tablet] 2 tab PO Q6H PRN #20 tablet 06/09/16 [Rx] PredniSONE 60 mg PO DAILY tablet 06/09/16 [Rx] Allergies/Adverse Reactions: Allergies No Known Allergies Allergy (Verified 03/22/16 19:28) - Respiratory Orders Smoking Cessation: Smoking cessation has been advised. For more information, call the [place] Tobacco Quit Line at 5-013-IDZL-NOW. CERTIFICATION: I certify that the transfer of the above named patient to an Extended Care Facility is necessary for the continuing treatment of the diagnosis listed. The above information is true and accurate reflection of patient's current condition. Confidential - Redisclosure prohibited without a patient's written consent.
== END 2016-06-09 18:00 | DRG 140 ==
LOC: EMEROO 14:41 → 3BNU 14:41
PROVIDERS: ADMIT Internal Medicine; ATTEND Registered Nurse